=== PATIENT | male | born 1965 | race Asian ===

== ENCOUNTER 2020-06-07 12:07 | Emergency (ER) | payer SELFPAY ==
[~2020-06-07] VITALS: Ht 162.6 cm; Wt 70.0 kg
[2020-06-07 12:23] VITALS: BP 155/111
== END 2020-06-07 14:20 | disposition home or self-care (01) ==
LOC: ED 14:08
DX: L03.90 Cellulitis, unspecified (principal)
CPT/HCPCS: 99283